=== PATIENT | male | born 1995 | race Caucasian/White ===

== ENCOUNTER → 2016-10-10 | Outpatient (REF) ==
[~2016-10-10] MED LIST: ALBUTEROL SULFAT3 M3 IH; ALBUTEROL0.83 MG/ML IH; NEURONTIN300 MG/CAP PO; PHENERGAN W/CO120 M1 PO; PREDNISONE20 MG PO; PROAIR HFA0.09 MG/AC IH; ZITHROMAX Z PA250 MG PO
== END ==
LOC: WSOH 11:00
DX: Z02.1 Encounter for pre-employment examination (principal)

== ENCOUNTER 2018-03-01 22:43 | Emergency (ER) | payer OTHER ==
[~2018-03-01] VITALS: Ht 185.4 cm; Wt 79.5 kg
[~2018-03-01 22:43] MED LIST changes: +CELEBREX50 MG PO; +MINOCIN 50M50 MG/CAP PO
[2018-03-01 23:01] VITALS: TEMP 98.1
[2018-03-01 23:42] LABS: BASO # 0.1 (0.0-0.2); BASO % 0.8 % (0.0-2.0); EOS # 0.2 (0.0-0.7); EOS % 2.3 % (0-4.0); GRAN # 4.6 (1.4-6.5); GRAN % 50.2 % (42.2-75.2); HEMATOCRIT 47.1 % (42.0-52.0); HEMOGLOBIN 15.7 g/dl (13.5-18.0); LYMPH # 3.4 (1.2-3.4); LYMPH % 36.7 % (20.0-51.0); MEAN CELL VOLUME 88 fl (80.0-100.0); MEAN CORPUSCULAR HEMOGLOBIN 29 pg (27.0-31.0); MEAN CORPUSCULAR HGB CONC 33 g/dl (33.0-37.0); MEAN PLATELET VOLUME 10.4 fl (7.4-10.4); MONO # 0.9 (0.1-0.6); MONO % 9.8 % (1.7-9.3); PLATELET COUNT 270 K/mm3 (130-400); RED BLOOD COUNT 5.37 M/mm3 (4.20-5.60); REDCELL DISTRIBUTION WIDTH-CV 12.2 % (11.5-14.5)
[2018-03-01 23:47] LABS: INR 1.2 (0.8-3.0); PROTHROMBIN TIME 13.2 SECONDS (9.7-12.8)
[2018-03-01 23:55] LABS: ALANINE AMINOTRANSFERASE 24 U/L (21-72); ALBUMIN 4.3 gm/dL (3.5-5.0); ALKALINE PHOSPHATASE 68 U/L (50-136); ANION GAP 8 mmol/L (7-16); AST,SGOT 21 U/L (15-37); BILIRUBIN,TOTAL 0.5 mg/dL (0.0-1.0); BLOOD UREA NITROGEN 14 mg/dL (9-20); CALCIUM 9.2 mg/dL (8.4-10.2); CARBON DIOXIDE 29 mmol/L (22-30); CHLORIDE 106 mmol/L (98-107); CREATININE, serum 0.86 mg/dL (0.66-1.25); GLUCOSE 96 mg/dL (74-106); MAGNESIUM 2.1 mg/dL (1.6-2.3); POTASSIUM 3.7 mmol/L (3.4-5.0); SODIUM 142 mmol/L (137-145); TOTAL PROTEIN 7.1 gm/dL (6.4-8.2)
[2018-03-02 00:05] LABS: TROPONIN-I < 0.012 ng/mL (0.000-0.034)
[2018-03-02 01:19] VITALS: BP 137/83; PULSE 61
== END 2018-03-02 01:23 | disposition home or self-care (01) ==
LOC: COL.ER 22:43
PROVIDERS: Emergency Medicine
DX: R07.81 Pleurodynia (principal); J45.909 Unspecified asthma, uncomplicated; Z86.79 Personal history of other diseases of the circulatory system

== ENCOUNTER 2018-03-07 21:58 | Emergency (ER) | payer OTHER ==
[~2018-03-07] VITALS: Ht 185.4 cm; Wt 80.9 kg
[2018-03-07 22:46] VITALS: TEMP 98.7
[2018-03-07 23:55] LABS: BASO # 0.1 (0.0-0.2); BASO % 0.7 % (0.0-2.0); EOS # 0.1 (0.0-0.7); EOS % 1.5 % (0-4.0); GRAN # 4.4 (1.4-6.5); GRAN % 50.6 % (42.2-75.2); HEMATOCRIT 47.7 % (42.0-52.0); HEMOGLOBIN 16.1 g/dl (13.5-18.0); LYMPH # 3.3 (1.2-3.4); LYMPH % 37.7 % (20.0-51.0); MEAN CELL VOLUME 87 fl (80.0-100.0); MEAN CORPUSCULAR HEMOGLOBIN 29 pg (27.0-31.0); MEAN CORPUSCULAR HGB CONC 34 g/dl (33.0-37.0); MEAN PLATELET VOLUME 10.6 fl (7.4-10.4); MONO # 0.8 (0.1-0.6); MONO % 9.3 % (1.7-9.3); PLATELET COUNT 247 K/mm3 (130-400); RED BLOOD COUNT 5.51 M/mm3 (4.20-5.60); REDCELL DISTRIBUTION WIDTH-CV 11.9 % (11.5-14.5)
[2018-03-07 23:56] LABS: ALBUMIN 4.4 gm/dL (3.5-5.0); BILIRUBIN,TOTAL 0.8 mg/dL (0.0-1.0); CALCIUM 9.5 mg/dL (8.4-10.2); CREATININE, serum 0.82 mg/dL (0.66-1.25); POTASSIUM 3.6 mmol/L (3.4-5.0); TOTAL PROTEIN 7.3 gm/dL (6.4-8.2)
[2018-03-08 00:26] LABS: THYROID STIMULATING HORMONE 1.98 uIU/mL (0.465-4.680)
[2018-03-08 02:07] VITALS: BP 124/77; PULSE 69
[2018-03-08] MEDS ORDERED: TIAZAC120 MG PO (20:16)
== END 2018-03-08 02:12 | disposition left against medical advice (07) ==
LOC: COL.ER 21:58
PROVIDERS: Emergency Medicine
DX: R00.2 Palpitations (principal); J45.909 Unspecified asthma, uncomplicated

== ENCOUNTER 2018-03-08 16:45 | Emergency (ER) | payer SELFPAY ==
[~2018-03-08] VITALS: Ht 185.4 cm; Wt 80.9 kg
[2018-03-08 16:55] VITALS: TEMP 98.2
[2018-03-08 18:45] LABS: BASO # 0.1 (0.0-0.2); BASO % 0.6 % (0.0-2.0); EOS # 0.3 (0.0-0.7); EOS % 3.1 % (0-4.0); GRAN # 4.7 (1.4-6.5); GRAN % 54.8 % (42.2-75.2); HEMATOCRIT 47.7 % (42.0-52.0); HEMOGLOBIN 16.1 g/dl (13.5-18.0); LYMPH # 2.8 (1.2-3.4); LYMPH % 32.5 % (20.0-51.0); MEAN CELL VOLUME 88 fl (80.0-100.0); MEAN CORPUSCULAR HEMOGLOBIN 30 pg (27.0-31.0); MEAN CORPUSCULAR HGB CONC 34 g/dl (33.0-37.0); MEAN PLATELET VOLUME 10.7 fl (7.4-10.4); MONO # 0.8 (0.1-0.6); MONO % 8.9 % (1.7-9.3); PLATELET COUNT 232 K/mm3 (130-400); RED BLOOD COUNT 5.45 M/mm3 (4.20-5.60); REDCELL DISTRIBUTION WIDTH-CV 12.3 % (11.5-14.5)
[2018-03-08 19:06] LABS: ALANINE AMINOTRANSFERASE 17 U/L (21-72); ALBUMIN 4.5 gm/dL (3.5-5.0); ALKALINE PHOSPHATASE 83 U/L (50-136); ANION GAP 11 mmol/L (7-16); AST,SGOT 35 U/L (15-37); BILIRUBIN,TOTAL 0.5 mg/dL (0.0-1.0); BLOOD UREA NITROGEN 17 mg/dL (9-20); CALCIUM 9.3 mg/dL (8.4-10.2); CARBON DIOXIDE 25 mmol/L (22-30); CHLORIDE 105 mmol/L (98-107); CREATININE, serum 0.87 mg/dL (0.66-1.25); GLUCOSE 97 mg/dL (74-106); POTASSIUM 4.3 mmol/L (3.4-5.0); SODIUM 141 mmol/L (137-145); TOTAL PROTEIN 7.4 gm/dL (6.4-8.2)
[2018-03-08 19:19] LABS: TROPONIN-I < 0.012 ng/mL (0.000-0.034)
[2018-03-08] MEDS ORDERED: TIAZAC120 MG PO (20:16)
[2018-03-08 21:26] VITALS: BP 136/84; PULSE 78
== END 2018-03-08 21:36 | disposition home or self-care (01) ==
LOC: COL.ER 16:45
PROVIDERS: Emergency Medicine
DX: R00.2 Palpitations (principal); J45.909 Unspecified asthma, uncomplicated
CPT/HCPCS: J2060

== ENCOUNTER 2019-01-13 19:53 | Emergency (ER) | payer OTHER ==
[~2019-01-13] VITALS: Ht 185.4 cm; Wt 88.2 kg
[~2019-01-13 19:53] MED LIST changes: +TIAZAC120 MG PO
[2019-01-13 20:01] VITALS: BP 126/113; TEMP 98
[2019-01-13 22:52] VITALS: PULSE 76
== END 2019-01-13 22:52 | disposition home or self-care (01) ==
LOC: COL.ER 19:53
DX: R04.0 Epistaxis (principal)

== ENCOUNTER → 2019-12-23 | Outpatient (CLI) | payer OTHER | LOC: COL.RAD 06:57 | DX: S89.91XA Unspecified injury of right lower leg, initial encounter (principal) ==